=== PATIENT | female | born 1935 | race Two or more races ===

== ENCOUNTER 2018-11-03 08:41 | Emergency (ER) | payer OTHER ==
[~2018-11-03] VITALS: Ht 162.6 cm; Wt 63.5 kg
[~2018-11-03 08:41] MED LIST: AMOX TR-K CLV 81 TA1; AVAPRO300 MG; NAPR500T14 PO; NORVASC10 MG; SEPTRA DS TABLE1 TAB PO
[2018-11-03] MEDS ORDERED: SKELAXIN800 MG PO (11:51)
[2018-11-03] MEDS ORDERED: CELECOXIB100 MG PO (11:51)
== END 2018-11-03 13:24 | disposition home or self-care (01) ==
LOC: ER 08:41
DX: M25.562 Pain in left knee (principal)

== ENCOUNTER 2019-01-01 12:30 | Emergency (ER) | payer OTHER ==
[~2019-01-01] VITALS: Ht 162.6 cm; Wt 63.5 kg
[~2019-01-01 12:30] MED LIST changes: +CELECOXIB100 MG PO; +SKELAXIN800 MG PO
== END 2019-01-01 15:15 | disposition home or self-care (01) ==
LOC: ER 12:30
DX: M70.51 Other bursitis of knee, right knee (principal)

== ENCOUNTER → 2019-02-08 | Emergency (ER) | payer OTHER ==
[~2019-02-08] VITALS: Ht 152.4 cm; Wt 63.5 kg
[~2019-02-08] MED LIST changes: +ALPRAZOLAM0.25 MG; +CEFUROXIME500 MG PO; +LOSARTAN POTAS100 MG; +NABUMETONE750 MG PO
== END | disposition home or self-care (01) ==
LOC: ER 21:38
DX: L03.113 Cellulitis of right upper limb (principal)

== ENCOUNTER 2021-05-19 12:48 | Emergency (ER) | payer OTHER ==
[~2021-05-19] VITALS: Ht 160 cm; Wt 65.3 kg
[2021-05-19] MEDS ORDERED: VALSARTAN-HCTZ1 EAC3 PO (13:15)
[2021-05-19] MEDS ORDERED: MACRODANTIN100 M1 PO (18:30)
== END 2021-05-19 20:04 | disposition home or self-care (01) ==
LOC: ER 12:48
DX: R60.0 Localized edema (principal); M79.605 Pain in left leg; M79.604 Pain in right leg